=== PATIENT | female | born 1955 | race Caucasian/White ===

== ENCOUNTER 2024-01-12 22:10 | Inpatient (IN) | payer MEDICARE ==
[~2024-01-12] VITALS: Ht 162.6 cm; Wt 68.8 kg
[2024-01-12 21:00] VITALS: BP_SYST 123
[~2024-01-12 22:10] MED LIST: PAXIL 20MG20 MG PO
[2024-01-13] VITALS (21 sets, daily range): BP systolic 103–135; BP diastolic 58–85; PULSE 56–95; TEMP 97.5–98.7
--- NOTE | 2024-01-13 00:01 | NUR ---
PATIENT ADMITTED TO ROOM 352 BY EMS FROM [place], [place]. MED REC IMCOMPLETE PATIENT SLIGHHTLY CONFUSED VS WNL. FLUIS RUNNING UPON ARRIVAL-NS 125ML/HR. O2 NC 4L. PATIENT ORIENTED TO ROOM.
[2024-01-13 00:41] LABS: BASO # 0.1 K/mm3 (0.0-0.2); BASO % 0.4 % (0.0-2.0); EOS # 0.1 K/mm3 (0.0-0.7); EOS % 0.9 % (0.0-4.0); GRAN # 8.4 K/mm3 (1.4-6.5); GRAN % 65.7 % (42.2-75.2); HEMATOCRIT 48.9 % (37.0-47.0); HEMOGLOBIN 16.5 g/dl (12.5-16.0); LYMPH # 3.2 K/mm3 (1.2-3.4); LYMPH % 24.7 % (20.0-51.0); MEAN CELL VOLUME 97 fl (80.0-100.0); MEAN CORPUSCULAR HEMOGLOBIN 33 pg (27-31); MEAN CORPUSCULAR HGB CONC 34 g/dl (33.0-37.0); MEAN PLATELET VOLUME 10.3 fl (7.4-10.4); MONO % 7.8 % (1.7-9.3); PLATELET COUNT 207 K/mm3 (130-400); RED BLOOD COUNT 5.05 M/mm3 (4.10-5.30); REDCELL DISTRIBUTION WIDTH-CV 15.1 % (11.5-14.5)
[2024-01-13 00:56] LABS: ALBUMIN 3.1 gm/dL (3.4-4.8); BILIRUBIN,TOTAL 0.8 mg/dL (0.2-1.2); CREATININE, serum 1.35 mg/dL (0.57-1.11); MAGNESIUM 2.3 mg/dL (1.6-2.6); PHOSPHOROUS 3.1 mg/dL (2.3-4.7); POTASSIUM 3.7 mmol/L (3.5-4.5); TOTAL PROTEIN 6.1 gm/dL (6.2-8.1)
[2024-01-13 01:06] LABS: TROPONIN-I 0.191 ng/mL (0.00-0.033)
--- NOTE | 2024-01-13 01:17 | NUR ---
CALL PLACED TO HOSPITALISTMICHEL. CRITICAL TROPONIN [phone]
[2024-01-13 01:21] LABS: INR 1.1 (0.8-3.0); PROTHROMBIN TIME 12.2 SECONDS (9.7-12.8)
--- NOTE | 2024-01-13 01:41 | NUR ---
CALL PLACED TO HOSPITALISTMICHEL. CRITICAL D-DIMER [phone].
[2024-01-13] MEDS ORDERED: Mag/Al Hydrox/Simeth Susp 30 ML CUP PO PRN (02:30)
[2024-01-13] MEDS ORDERED: Heparin 5,000 UNITS/ML 1 ML VIAL IV PRN (02:30)
[2024-01-13] MEDS ORDERED: Heparin/D5W 250 ML IV SCH (02:30)
[2024-01-13] MEDS ORDERED: Acetaminophen 325 MG TAB PO PRN (02:30)
[2024-01-13] MEDS ORDERED: Folic Acid 1 MG,Thiamine 200 MG in NS 1,000 ML IV ONE (02:30)
[2024-01-13] MEDS ORDERED: Ondansetron 4 MG/2 ML VIAL IV PRN (02:30)
[2024-01-13] MEDS ORDERED: Heparin 5,000 UNITS/ML 1 ML VIAL IV ONE (02:30)
[2024-01-13] MEDS ORDERED: LORazepam 2 MG/ML 1 ML VIAL IV PRN (02:30)
[2024-01-13 02:42] LABS: PARTIAL THROMBOPLASTIN TIME 29.2 SECONDS (26.0-37.0)
[2024-01-13 02:47] LABS: COLLECTION METHOD CLEAN CATCH
[2024-01-13 02:50] LABS: PH 5.5 (5.0-8.5); URINE APPEARANCE CLEAR (CLEAR/HAZY); URINE BLOOD NEGATIVE (NEGATIVE); URINE COLOR YELLOW (YELLOW); URINE GLUCOSE NEGATIVE (NEGATIVE); URINE KETONE NEGATIVE (NEGATIVE); URINE NITRATE NEGATIVE (NEGATIVE); URINE PROTEIN(semi-quant) NEGATIVE (NEGATIVE); URINE UROBILINOGEN 0.2 E.U/dL (0.2-1.0)
[2024-01-13] MEDS ORDERED: Iohexol 300 - 100 ML VIAL IV ONE (03:35)
--- NOTE | 2024-01-13 05:15 | NUR ---
HEAD CT AND CHEST PE RESULTED AND ARE NEGATIVE; HEPARIN GTTS STARTED AT 12.5mL/HR.
--- NOTE | 2024-01-13 06:16 | NUR ---
PATIENT 02 SAT ON 4L NC AT 98%, REDUCED O2 TO 3L-PATIENT 02 SAT 96%.
[2024-01-13] MEDS ORDERED: FOLIC ACID 11 MG/TA1 PO (06:22)
[2024-01-13] MEDS ORDERED: WELLBUTRIN SR150 M1 PO (06:23)
[2024-01-13] MEDS ORDERED: MIRTAZAPINE7.5 MG PO (06:24)
[2024-01-13] MEDS ORDERED: ABILIFY2 MG PO (06:24)
[2024-01-13] MEDS ORDERED: BUMEX2 MG PO (06:25)
[2024-01-13 06:49] LABS: HEMATOCRIT 46.7 % (37.0-47.0); HEMOGLOBIN 15.4 g/dl (12.5-16.0); MEAN CELL VOLUME 99 fl (80.0-100.0); MEAN CORPUSCULAR HEMOGLOBIN 33 pg (27-31); MEAN CORPUSCULAR HGB CONC 33 g/dl (33.0-37.0); MEAN PLATELET VOLUME 10.8 fl (7.4-10.4); PLATELET COUNT 198 K/mm3 (130-400); RED BLOOD COUNT 4.72 M/mm3 (4.10-5.30); REDCELL DISTRIBUTION WIDTH-CV 14.8 % (11.5-14.5)
[2024-01-13 06:51] LABS: ALBUMIN 2.8 gm/dL (3.4-4.8); BILIRUBIN,TOTAL 0.8 mg/dL (0.2-1.2); CALCIUM 8.8 mg/dL (8.4-10.2); CREATININE, serum 1.05 mg/dL (0.57-1.11); POTASSIUM 3.5 mmol/L (3.5-4.5); TOTAL PROTEIN 5.4 gm/dL (6.2-8.1)
[2024-01-13 07:06] LABS: TROPONIN-I 0.168 ng/mL (0.00-0.033)
[2024-01-13] MEDS ORDERED: AMOXICILLIN 8751 TAB PO (08:51)
[2024-01-13] MEDS ORDERED: LASIX 80MG TABL80 MG PO (08:53)
[2024-01-13] MEDS ORDERED: AMBIEN 5MG TABLE5 MG PO (08:54)
[2024-01-13] MEDS ORDERED: Metoprolol Tartrate 25 MG TAB PO SCH (09:00)
[2024-01-13] MEDS ORDERED: PARoxetine HCL 10 MG TABLET PO SCH (09:00)
[2024-01-13] MEDS ORDERED: Nicotine 21 MG DAILY PATCH TD SCH (09:00)
--- NOTE | 2024-01-13 09:59 | NUR ---
ASSESSMENT COMPLETE. PATIENT VERY DROWSY AND FELL BACK TO SLEEP SEVERAL TIMES THROUGHOUT ASSESSMENT. HELD PO MEDS FOR THE TIME BEING DUE TO NPO ORDERS. DENIES ANY NAUSEA, DIZZINESS, HEADACHE
--- NOTE | 2024-01-13 16:21 | NUR ---
Cra Officer met with patient to discuss discharge plan. Patient lives in [place] with her , Jordan (ph#[phone]) and sees Dr. Mckeon for primary care. Patient's daughter, Daniela is at bedside for intake. Patient gets her medications from [facility] with no difficulties and is able to drive herself to medical appointments. Patient has a walker that she uses for ambulation as needed as she has an ankle injury. Patient reported she is independent with ADLS and plans to return home at time of discharge. Patient stated she has DPOA-HC completed designating Jordan. Discharge Plan; Home
--- NOTE | 2024-01-13 20:00 | NUR ---
Assessmet complete. A&Ox3-drowsy. Denies pain/nausea/shortness of breath. VS stable. Not scoring on CIWA. INT to right hand with heparin @1250 units-infusing without difficulty. Currently on 2L/NC. Tele reporting SR. Plan of care discussed for NPO at 0000 for heart cath tomorrow. Verbalizes understanding. Denies current questions/concerns. Call light in reach. Will monitor.
[2024-01-13] MEDS ORDERED: buPROPion SR (12-HR) 150 MG TAB PO SCH (21:00)
[2024-01-13] MEDS ORDERED: Atorvastatin 40 MG TAB PO SCH (21:00)
[2024-01-14] VITALS (20 sets, daily range): BP systolic 99–125; BP diastolic 56–80; PULSE 55–78; TEMP 97.1–98.3
--- NOTE | 2024-01-14 04:57 | NUR ---
Patient had an uneventful night. Denied pain/nausea/shortness of breath. VS stable. Not scoring on CIWA. Currently on O2@2L/NC. Has remained NPO since 0000 for heart cath. Right hand INT with heparin at 1250units. Denies current questions/concerns. Call light in reach. Will monitor.
[2024-01-14 06:50] LABS: HEMATOCRIT 45.3 % (37.0-47.0); MEAN CELL VOLUME 99 fl (80.0-100.0); MEAN CORPUSCULAR HEMOGLOBIN 33 pg (27-31); MEAN CORPUSCULAR HGB CONC 33 g/dl (33.0-37.0); PLATELET COUNT 190 K/mm3 (130-400); REDCELL DISTRIBUTION WIDTH-CV 15.8 % (11.5-14.5)
[2024-01-14] MEDS ORDERED: 1/2 NS 1,000 ML IV SCH ×2 (07:00→13:45)
[2024-01-14 07:06] LABS: CALCIUM 8.9 mg/dL (8.4-10.2); CREATININE, serum 0.78 mg/dL (0.57-1.11); MAGNESIUM 2.2 mg/dL (1.6-2.6); POTASSIUM 3.5 mmol/L (3.5-4.5)
[2024-01-14 07:08] LABS: INR 1.2 (0.8-3.0)
[2024-01-14 07:09] LABS: PARTIAL THROMBOPLASTIN TIME 71.5 SECONDS (26.0-37.0)
[2024-01-14] MEDS ORDERED: Multivitamin TAB PO SCH (08:00)
[2024-01-14] MEDS ORDERED: Thiamine 100 MG TAB PO SCH (09:00)
[2024-01-14] MEDS ORDERED: Folic Acid 1 MG TAB PO SCH (09:00)
--- NOTE | 2024-01-14 09:14 | NUR ---
ASSESSMENT COMPLETE. PATIENT REMAINS NPO STATUS IN PREPERATION FOR HER PROCEDURE LATER TODAY. DENIES ANY PAIN, HEADACHE, NAUSEA, SOA. CALL LIGHT WITHIN REACH. DENIES ANY OTHER NEEDS AT THIS TIME. FAMILY ARRIVING AT BEDSIDE.
--- NOTE | 2024-01-14 12:53 | NUR ---
Please see merge documentation for record of interventions, vitals and medications administered during left heart cath.
--- NOTE | 2024-01-14 14:18 | NUR ---
PATIENT HAS RIGHT RADIAL COMPRESSION BAND. CDI. 11ML,HAVE NOT YET DEFLATED PATIENT HAS RIGHT FEMORAL SITE WITH ANGIOSEAL. CDI
--- NOTE | 2024-01-14 14:20 | NUR ---
Faith was transported back to rm 352 after complete heart cath. and 2 daughters accompanied pt back up to room from lab technologist waiting area. Pt is awake alert, pwd with reg and unlabored respirations, satting mid 90's on 2l/nc. TR band to rt wrist in place with 11 cc air in band. no swelling, or sign of bleeding noted, cms intact distal. Rt femoral vein puncture site is soft with dressing CDI, and cms intact distal also. Pt care handed off to [facility] RNs.
[2024-01-14] MEDS ORDERED: Nitroglycerin 100 MCG/ML (Cath Lab) 10 ML VIAL IA SCH (14:25)
[2024-01-14] MEDS ORDERED: Heparin 1,000 UNITS/ML 10 ML Multi-Dose VIAL IV SCH (14:26)
[2024-01-14] MEDS ORDERED: Heparin 1,000 UNITS/ML 10 ML Multi-Dose VIAL IA SCH (14:27)
[2024-01-14] MEDS ORDERED: Verapamil 2.5 MG/ML 2 ML VIAL IA SCH (14:28)
[2024-01-14] MEDS ORDERED: Midazolam 2 MG/2 ML VIAL IV SCH (14:29)
[2024-01-14] MEDS ORDERED: fentaNYL 50 MCG/ML 2 ML VIAL IV SCH (14:30)
[2024-01-14] MEDS ORDERED: Iohexol 350 - 100 ML VIAL INCOR ONE (14:31)
--- NOTE | 2024-01-14 14:52 | NUR ---
PATIENT ALSO HAS RIGHT FEMORAL SITE WITH ANGIOSEAL. DRESSING CLEAN/DRY/INTACT. SITE SOFT.
--- NOTE | 2024-01-14 14:55 | NUR ---
PATIENT ALSO HAS A RIGHT FEMORAL SITE WITH ANGIOSEAL. DRESSING CLEAN/DRY/INTACT. SITE IS SOFT
--- NOTE | 2024-01-14 14:58 | NUR ---
PATIENT ALSO HAS RIGHT FEMORAL SITE WITH ANGISEAL. DRESSING IS CLEAN/DRY.INTACT. SITE IS SOFT
--- NOTE | 2024-01-14 15:36 | NUR ---
PATIENT ALSO HAS RIGHT FEMORAL ANGIOSEAL. CHECKED SIGHT. FREE OF BLEEDING,DRAINAGE, OR HEMATOMA. CDI
--- NOTE | 2024-01-14 15:55 | NUR ---
PATIENT HAS RIGHT FEMORAL SIGHT. CDI. FREE OF BLEEDING OR HEMATOMA. PATIENT HAS BEEN FLAT FOR TWO HOURS. PATIENT TOLERATED GETTING UP TO THE RESTROOM WELL/
--- NOTE | 2024-01-14 16:27 | NUR ---
PATIENT HAS RIGHT FEMORAL SIGHT ANGIOSEAL. CDI, NO HEMATOMA.
[2024-01-14] MEDS ORDERED: BUMEX2 MG PO (17:08)
--- NOTE | 2024-01-14 17:37 | NUR ---
PATIENT RECEIVED DISCHARGE PAPERWORK. ACKNOWLEDGED UNDERSTANDING OF MEDICATION CHANGES AND FOLLOW UP APPOINTMENTS. RIGHT RADIAL COMPRESSION BAND DISCONTINUED. TEGARDERM AND GAUZE PLACED. CLEAN,DRY, AND INTACT. REMOVED PIVS. CLEAN,DRY, AND INTACT REMOVED TELEMETRY PATIENT WAS TRANSPORTED TO [facility] FOR DISCHARGE WITH NURSING STAFF. NO PROBLEMS.
== END 2024-01-14 17:38 | disposition home or self-care (01) | DRG 280 ==
LOC: MEDICAL 22:10
PROVIDERS: Physician Assistant; ADMIT Internal Medicine
PROC: 4A023N8 Measurement of Cardiac Sampling and Pressure, Bilateral, Percutaneous Approach (ICD-10-PCS; principal; 2024-01-14)
PROC: B2111ZZ Fluoroscopy of Multiple Coronary Arteries using Low Osmolar Contrast (ICD-10-PCS; 2024-01-14)
DX: I21.4 Non-ST elevation (NSTEMI) myocardial infarction (principal); J96.01 Acute respiratory failure with hypoxia; I27.20 Pulmonary hypertension, unspecified; E86.0 Dehydration; F32.A Depression, unspecified; F10.20 Alcohol dependence, uncomplicated; R29.6 Repeated falls; R19.7 Diarrhea, unspecified; M54.50 Low back pain, unspecified; M25.572 Pain in left ankle and joints of left foot; R79.89 Other specified abnormal findings of blood chemistry; I50.9 Heart failure, unspecified; F17.210 Nicotine dependence, cigarettes, uncomplicated; Z87.01 Personal history of pneumonia (recurrent); Z87.440 Personal history of urinary (tract) infections; Z23 Encounter for immunization
CPT/HCPCS: C1769; C1894; J1644; J2250; J3010; J3411; J7030; Q9967

== ENCOUNTER → 2024-03-04 | Outpatient (CLI) | payer MEDICARE, OTHER ==
[~2024-03-04] MED LIST changes: +ABILIFY2 MG PO; +AMBIEN 5MG TABLE5 MG PO; +AMOXICILLIN 8751 TAB PO; +Albuterol 0.083% Neb Soln 2.5 MG/3 ML UD IH ONE; +BUMEX2 MG PO; +FOLIC ACID 11 MG/TA1 PO; +LASIX 80MG TABL80 MG PO; +MIRTAZAPINE7.5 MG PO; +WELLBUTRIN SR150 M1 PO
[2024-03-04 09:38] LABS: ARTERIAL BLD GAS O2 SATURATION 91.3 % (92-100); ARTERIAL BLD GAS TCO2 CT 28.5; ARTERIAL BLOOD GAS BASE EXCESS 3.4 (-2-2); ARTERIAL BLOOD GAS HCO3 27.3 meq/L (22-26); ARTERIAL BLOOD GAS PCO2 39.4 mmHg (35-45); ARTERIAL BLOOD GAS PO2 59.5 mmHg (80-100); ARTERIAL BLOOD GAS pH 7.46 (7.35-7.45)
== END ==
LOC: COL.CARD 09:17
PROVIDERS: Internal Medicine Pulmonary Disease
DX: I27.20 Pulmonary hypertension, unspecified (principal)
CPT/HCPCS: A9540-JZ; A9567-JZ